=== PATIENT | female | born 1935 | race Caucasian/White ===

== ENCOUNTER 2016-09-05 17:03 | Inpatient (IN) | payer OTHER ==
[~2016-09-05 17:03] MED LIST: ATORVASTATIN CALCIUM 10 MG TAB PO SCH
--- NOTE | 2016-09-05 17:38 | EDPHY ---
H & P Stated Complaint: sent from [facility] with pna HPI/ROS: CHIEF COMPLAINT: Cough, fever, PNA on x-ray HISTORY OF PRESENT ILLNESS: The patient is an 81 y/o female, with a history of MAC bronchiectasis, arriving at the referral of her PCP with pneumonia diagnosed on x-ray this afternoon. She began feeling poor last night with nasal congestion, sore throat, fatigue, fever, and feeling out of breath. She has a chronic cough from MAC, but says her cough is worse than normal. She saw her PCP today for these symptoms and had a chest x-ray and labs done. She was diagnosed with pneumonia. She did receive a flu vaccination this season. She denies vomiting, diarrhea, abdominal pain, or dysuria. REVIEW OF SYSTEMS: A ten point review of systems was performed and is negative with the exception of the items mentioned in the HPI. Source: Patient Exam Limitations: No limitations - Personal History Current Tetanus/Diphtheria Vaccine: Yes - Medical/Surgical History PMH: PMH includes: 1. MAC (mycobacterium avium complex) and bronchiectasis for the past 3-[address] 2. Hypercholesteremia 3. Depression, recently 4. Ectopic 5. Right knee surgery 6. Appendectomy 7. GERD PCP: Dr. Phillip Reaction to azithromycin is diarrhea. 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 Two children. Former smoker quit 1970. Rare alcohol use. No illicit drug use. of leukemia recently. - Physical Exam Exam: General Appearance: Alert. Vital signs reviewed. Tachycardic 120 Eyes: Pupils equal and round, no conjunctival injection, no discharge. Anicteric. ENT, Mouth: Mucous membranes are moist, no oropharyngeal erythema or edema. Neck: mild anterior lymphadenopathy, supple. Respiratory: Lungs have crackles on left side. No wheezes. Cardiovascular: Tachycardic; no murmur, rub, or gallop. Gastrointestinal: Abdomen is soft and nontender, no masses or organomegaly, bowel sounds normal. Skin: Warm and dry, no rashes on exposed skin, normal color. Cheeks flushed. Back: Nontender to palpation over the thoracolumbar spine. No CVAT. Extremities: No lower extremity edema, no calf tenderness or swelling. Neurological: Alert and oriented. Moving all four extremities easily and equally. Psychiatric: Normal affect. Constitutional: Initial Vital Signs Temperature (C) 37.1 C 09/05/16 17:20 Heart Rate 120 H 09/05/16 17:20 Respiratory Rate 22 H 09/05/16 17:20 Blood Pressure 107/74 09/05/16 17:20 O2 Sat (%) 93 09/05/16 17:20 O2 Delivery Mode Room Air Allergies/Adverse Reactions: azithromycin Allergy (Verified 09/05/16 17:17) metronidazole [From Flagyl] Allergy (Verified 09/05/16 17:17) Home Medications: Medication Instructions Recorded Albuterol Hfa Anes Only [Proair 2 puffs IH TID 09/05/16 Hfa Icu (*)] Amitriptyline HCl [Elavil 10 mg 10 mg PO DAILY 09/05/16 (*)] Calcium Carbonate [Tums 500MG (*)] 500 mg PO DAILY PRN 09/05/16 Escitalopram Oxalate [Lexapro] 2.5 mg PO DAILY 09/05/16 Fluticasone Nasal [Flonase Nasal 1 sprays NASAL BID 09/05/16 [place] (RX)] Ivermectin [Soolantra] 1 lulu TP DAILY 09/05/16 Propranolol HCl [Inderal 10mg (*)] 5 - 10 mg PO DAILY PRN 09/05/16 Ranitidine HCl [Zantac] 300 mg PO HS 09/05/16 Simvastatin 20 mg PO Q48H 09/05/16 Simvastatin 30 mg PO Q48H 09/05/16 Temazepam 0.5 - 1 tab PO HS 09/05/16 Tretinoin [Retin-A] 1 lulu TP DAILY 09/05/16 Medical Decision Making ED Course/Re-evaluation: IV established. Labs drawn including cultures, labs performed at [facility] will be reviewed. 1000mg PO Tylenol and 1L IV NS administered. Her WBC is normal. Based upon her elevated respiratory rate at 10:00 p.m. elevated heart rate of 120 she does meet sepsis/SIRS criteria. She has a lingular pneumonia seen on chest x-ray. She is being given IV fluids. Levaquin is being ordered for treatment of a community-acquired pneumonia. She reports an allergy to azithromycin. She does not meet criteria for severe sepsis. Her lactate is 1, her bilirubin is normal, platelets are normal. Influenza testing is negative. She is being admitted to the hospital for IV antibiotics. Dr. Hernanedz accepts admission. She remained stable while in the ED. Differential Diagnosis: Shortness of breath including but not limited to pulmonary infectious process, COPD, asthma, pulmonary embolus and congestive heart failure. - Data Points Laboratory Results: Laboratory Results 09/05/16 17:50 09/05/16 17:50 Medications Given: Discontinued Medications Acetaminophen (Tylenol) 1,000 mg PO EDNOW ONE Stop: 09/05/16 18:44 Last Admin: 09/05/16 18:47 Dose: 1,000 mg Atorvastatin Calcium (Lipitor) 10 mg PO Q48H SHERRILL Stop: 03/04/17 08:59 Last Admin: 09/05/16 22:15 Dose: Not Given Escitalopram Oxalate (Lexapro) 10 mg PO DAILY SHERRILL Stop: 03/05/17 08:59 Last Admin: 09/06/16 09:55 Dose: Not Given Levofloxacin/Dextrose (Levaquin 750 Mg (Premix)) 150 mls @ 100 mls/hr IV EDNOW ONE PRN Reason: Protocol Stop: 09/05/16 20:09 Last Admin: 09/05/16 18:53 Dose: 150 mls Sodium Chloride (Ns) 1,000 mls @ 100 mls/hr IV CONT SHERRILL Stop: 09/06/16 06:14 Last Admin: 09/05/16 22:13 Dose: 1,000 mls Sodium Chloride (Ns) 1,000 mls @ 0 mls/hr IV ONCE ONE PRN Reason: Wide Open Stop: 09/05/16 20:18 Last Admin: 09/05/16 22:06 Dose: 1,000 mls Departure - Departure Disposition: [facility] Inpatient Acute Clinical Impression: Lingular pneumonia Condition: Good Report Scribed for: Estrella Weeks Report Scribed by: Jennifer Warner Date of Report: 09/05/16 Time of Report: 17:40 Physician Review and Approval Statement: 09/05/16 17:37 Portions of this note were transcribed by the medical receptionist assistant. I, Dr. Estrella Cabeen, personally performed the history, physical exam, and medical decision- making; and confirmed the accuracy of the information in the transcribed note.
[2016-09-05 18:03] LABS: % IMMATURE GRANULYOCYTES 0.1 % (0.0-1.1); ABSOLUTE IMMATURE GRANULOCYTES 0.01 10^3/uL (0.00-0.10); ADD DIFF? NO; ADD MORPH? NO; ADD SCAN? NO; ATYPICAL LYMPHOCYTE FLAG 20 (0-99); FRAGMENT RBC FLAG 0 (0-99); HEMATOCRIT 40.2 % (38.0-47.0); HEMOGLOBIN 13.8 g/dL (12.6-16.3); LEFT SHIFT FLG 0 (0-99); LIPEMIA HEMOLYSIS FLAG 90 (0-99); MEAN CELL HEMOGLOBIN 31.9 pg (27.9-34.1); MEAN CELL HEMOGLOBIN CONCENTR. 34.3 g/dL (32.4-36.7); MEAN CELL VOLUME 92.8 fL (81.5-99.8); MEAN PLATELET VOLUME 9.3 fL (8.7-11.7); PLATELET CLUMPS FLAG 10 (0-99); PLATELET COUNT 242 10^3/uL (150-400); RED BLOOD CELL COUNT 4.33 10^6/uL (4.18-5.33); RED CELL DISTRIBUTION WIDTH 12.9 % (11.5-15.2)
[2016-09-05 18:23] LABS: APTT 25.1 SEC (23.0-38.0); INR 1.06 (0.83-1.16); PROTIME(PATIENT) 13.7 SEC (12.0-15.0)
[2016-09-05 18:27] LABS: ANION GAP 13 mEq/L (8-16); BILIRUBIN,TOTAL 0.6 mg/dL (0.1-1.4); CALCIUM 9.4 mg/dL (8.5-10.4); CARBON DIOXIDE 26 mEq/l (22-31); CHLORIDE 95 mEq/L (97-110); CREATININE 0.9 mg/dL (0.6-1.0); GLOMERULAR FILTRATION RATE > 60; GLUCOSE 99 mg/dL (70-100); POTASSIUM 4.1 mEq/L (3.5-5.2); SODIUM 134 mEq/L (134-144)
[2016-09-05] MEDS ORDERED: ACETAMINOPHEN 500 MG TAB PO ONE (18:43)
[2016-09-05] MEDS ORDERED: ONDANSETRON 4 MG/2 ML VIAL IVP PRN (20:05)
[2016-09-05] MEDS ORDERED: ONDANSETRON DISINTEGRATING 4 MG TAB PO PRN (20:05)
[2016-09-05] MEDS ORDERED: ALBUTEROL 3 ML DEYVIAL IH PRN (20:11)
[2016-09-05] MEDS ORDERED: NS 1,000 ML IV SCH (20:15)
[2016-09-05] MEDS ORDERED: NS 1,000 ML IV ONE (20:17)
--- NOTE | 2016-09-05 20:55 | GHP ---
[f rep st] HISTORY AND PHYSICAL DATE OF ADMISSION: 09/05/2016 CHIEF COMPLAINT: Fever, cough and congestion. HISTORY OF PRESENT ILLNESS: The patient is an 81-year-old female with a history of MAC bronchiectasis and chronic cough who presents to the emergency department from her PCP's office due to concern for a pneumonia finding on chest x-ray. She states her symptoms started approximately 2 days ago with nasal congestion, sore throat, generalized fatigue, and subjective fever. She denies chest pain, but she does endorse some shortness of breath. Her cough is worse than normal. She was seen in the outpatient clinic, and a chest x-ray revealed a pneumonia. Due to her age and overall weakness, she was sent to the emergency department and is admitted to the hospital for further management. PAST MEDICAL HISTORY: 1. Mycobacterium avium complex. 2. Bronchiectasis based on prior CT scan. 3. Hyperlipidemia. 4. Depression. 5. GERD. PAST SURGICAL HISTORY: 1. Right knee surgery. 2. Appendectomy. SOCIAL HISTORY: The patient is a former smoker. She denies alcohol or drug use. 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 She states her of leukemia approximately 1 year ago. FAMILY HISTORY: Reviewed and is not pertinent. MEDICATIONS: Please see [facility] for complete updated outpatient medication list. ALLERGIES: Azithromycin and metronidazole. REVIEW OF SYSTEMS: A 10-point review of systems was performed and is negative except as per HPI. OBJECTIVE: VITAL SIGNS: Upon her arrival to the emergency department, temperature is 37.1, blood pressure 107/74, heart rate 120, respiratory rate 22 , she is 93% on room air. GENERAL: The patient is awake, alert, oriented, no acute distress. HEENT: Head is atraumatic, normocephalic. Pupils equal, round , reactive to light. Extraocular muscles are intact. Oropharynx is clear. There is marked nasal congestion. Oropharynx reveals erythema. NECK: Supple. There is no JVD. SKIN: She does have eric cheeks and a mild petechial appearing rash on the right side of her neck. HEART: Regular rate and rhythm without murmur. LUNGS: Reveal crackles in the left lower lung gar, otherwise clear to auscultation. ABDOMEN: Soft, nondistended, nontender. Bowel sounds are positive. EXTREMITIES: Without cyanosis, clubbing, or edema. Warm and well perfused. NEUROLOGIC: Grossly nonfocal. LABORATORY STUDIES: Chest x-ray performed today reveals a new lingular lobe pneumonia superimposed on chronic airway disease and bronchiectasis. ASSESSMENT AND PLAN: The patient is an 81-year-old female with a history of Mycobacterium avium complex bronchiectasis who presents to the hospital with upper respiratory symptoms and pneumonia by imaging. 1. Acute hypoxemic respiratory failure secondary to community-acquired pneumonia: Upon arrival, she was 93% on room air though she is now requiring 2 L of oxygen. She is afebrile with a normal white count. She had a normal lactate. Her blood pressure has trended down a bit to the 90s over 60s. I will give her a normal saline bolus at this time and run maintenance fluids overnight. BCx's are pending. Will also send sputum culture. She received a dose of Levaquin in the emergency department. We will continue this, in addition to supportive care including nebulizers, mucolytics and antipyretics as needed. I do not hear any significant wheezing on exam, so I will defer steroids at this time. 2. History of Mycobacterium avium complex / bronchiectasis: Consider pulmonology consult in am. 3. Depression: I will continue her SSRI and her tricyclic antidepressant. 4. Hyperlipidemia: Continue statin. 5. DVT prophylaxis. The patient is high risk, and thus, Lovenox will be ordered in the event she requires ongoing hospitalization. CODE STATUS: Patient is FULL CODE. DISPOSITION: Patient admitted to observation status. If she clinically looks well, she could be considered for discharge tomorrow. Though if her condition worsens, she may need to be changed to inpatient status. /[id number]/MODL MTDD
[2016-09-05] MEDS ORDERED: ATORVASTATIN CALCIUM 10 MG TAB PO SCH ×2 (21:00)
[2016-09-05] MEDS: IPRATROPIUM/ALBUTEROL 3 ML DEYVIAL IH SCH (21:50)
[2016-09-05] MEDS: guaiFENesin 600 MG TAB.ER PO SCH (22:06)
[2016-09-05] MEDS: FAMOTIDINE 20 MG TAB PO SCH (22:06)
[2016-09-05] MEDS: FLUTICASONE NASAL 120 SPRAYS/16 GM MDI EACHNARE SCH (22:06)
[2016-09-05] MEDS: TEMAZEPAM 15 MG CAP PO PRN (22:07)
[2016-09-05 22:44] VITALS: RESP 16
[2016-09-05] MEDS: CALCIUM CARBONATE 500 MG CHEWABLE TAB PO PRN (23:33)
[2016-09-06] MEDS ORDERED: BENZONATATE 100 MG CAP PO PRN (01:19)
[2016-09-06 05:41] LABS: % IMMATURE GRANULYOCYTES 0.2 % (0.0-1.1); ABSOLUTE IMMATURE GRANULOCYTES 0.01 10^3/uL (0.00-0.10); ADD DIFF? NO; ADD MORPH? NO; ADD SCAN? NO; ATYPICAL LYMPHOCYTE FLAG 80 (0-99); FRAGMENT RBC FLAG 0 (0-99); HEMATOCRIT 33.7 % (38.0-47.0); HEMOGLOBIN 11.4 g/dL (12.6-16.3); LEFT SHIFT FLG 0 (0-99); LIPEMIA HEMOLYSIS FLAG 90 (0-99); MEAN CELL HEMOGLOBIN 32.1 pg (27.9-34.1); MEAN CELL HEMOGLOBIN CONCENTR. 33.8 g/dL (32.4-36.7); MEAN CELL VOLUME 94.9 fL (81.5-99.8); MEAN PLATELET VOLUME 9.2 fL (8.7-11.7); PLATELET CLUMPS FLAG 20 (0-99); PLATELET COUNT 188 10^3/uL (150-400); RED BLOOD CELL COUNT 3.55 10^6/uL (4.18-5.33); RED CELL DISTRIBUTION WIDTH 13.1 % (11.5-15.2)
[2016-09-06 05:49] LABS: ANION GAP 8 mEq/L (8-16); CALCIUM 8.4 mg/dL (8.5-10.4); CARBON DIOXIDE 27 mEq/l (22-31); CHLORIDE 104 mEq/L (97-110); CREATININE 0.8 mg/dL (0.6-1.0); GLOMERULAR FILTRATION RATE > 60; GLUCOSE 100 mg/dL (70-100); POTASSIUM 3.9 mEq/L (3.5-5.2); SODIUM 139 mEq/L (134-144)
[2016-09-06] MEDS: IPRATROPIUM/ALBUTEROL 3 ML DEYVIAL IH SCH ×4 (05:51→21:41)
[2016-09-06] MEDS: ACETAMINOPHEN 325 MG TAB PO PRN ×2 (06:26→14:21)
[2016-09-06] MEDS ORDERED: ESCITALOPRAM OXALATE 10 MG TAB PO SCH (09:00)
[2016-09-06] MEDS ORDERED: ATORVASTATIN CALCIUM 10 MG TAB PO SCH (09:00)
[2016-09-06] MEDS: ENOXAPARIN 40 MG/0.4 ML SYR SC SCH (09:54)
[2016-09-06] MEDS: guaiFENesin 600 MG TAB.ER PO SCH ×2 (09:55→21:56)
[2016-09-06] MEDS: AMITRIPTYLINE HCL 10 MG TAB PO SCH (09:55)
[2016-09-06] MEDS: FLUTICASONE NASAL 120 SPRAYS/16 GM MDI EACHNARE SCH ×2 (09:56→21:57)
[2016-09-06] MEDS: Ivermectin [Soolantra] 1 APP TP SCH (09:57)
[2016-09-06] MEDS: ESCITALOPRAM OXALATE 10 MG TAB PO SCH (10:41)
[2016-09-06] MEDS: CALCIUM CARBONATE 500 MG CHEWABLE TAB PO PRN ×2 (14:21→18:17)
--- NOTE | 2016-09-06 15:45 | HOSPPROG ---
Hospitalist Progress Note Assessment/Plan: 81-year-old female with a known history of mycobacterium avium complex, she was seen in her PCPs office and diagnosed with pneumonia and admitted through the emergency department. Patient is new to me today. -acute pneumonia with known mycobacterium avium complex. She is currently under treatment with bronchodilators and antibiotics and. The cough has been persistent and she is quite tired and now today is developed acute hoarseness. Though her oxygenation is in is improved her clinical status is worse. She is tired and weak and demonstrate some evidence of orthostatic blood pressure and pulse when standing and is slightly dizzy. This is probably just a continuation of the acute illness though she is unsafe to return home where she lives alone. Due to the persistent cough the need for antibiotics and bronchodilators, and her orthostatic blood pressure and pulse findings she should be changed from observation status to inpatient status. -acute hoarseness secondary to persistent coughing. She is on mucolytic ex at this time. I will order heat to the throat and back area and keep the area covered for comfort. -known pulmonary bronchiectasis with mycobacterium avium complex chronic infection. -chronic problems: Hyperlipidemia, depression, GERD. These will be treated appropriately Plan: Patient should be changed from observation to inpatient status due to the persistence of her respiratory distress and orthostatic blood pressure and pulse findings. Subjective: Patient reports new hoarseness and a persistence of the cough. She had a sleepless night secondary to her respiratory difficulties. Objective: Vital Signs Temp Pulse Resp BP Pulse Ox 36.5 C 76 16 86/51 L 97 09/06/16 12:16 09/06/16 12:16 09/06/16 12:16 09/06/16 12:19 09/06/16 12:16 Microbiology 09/06/16 04:45 - Final Sputum, Expectorated Laboratory Results 09/06/16 05:14 09/06/16 05:14 09/05/16 09/06/16 09/07/16 05:59 05:59 05:59 Intake Total 1400 1300 Output Total 1200 Balance 200 1300 PT 13.7 SEC (12.0-15.0) 09/05/16 17:50 INR 1.06 (0.83-1.16) 09/05/16 17:50 - Time Spent With Patient Time Spent with Patient: greater than 35 minutes Time Spent with Patient: Greater than 35 minutes spent on this patients care, greater than 50% of time spent counseling, educating, and coordinating care regarding the above mentioned plan. - Physical Exam Constitutional: other (Tired and ill-appearing. She coughed persistently through my exam and is clearly very hoarse.) Eyes: PERRL, anicteric sclera Ears, Nose, Mouth, Throat: moist mucous membranes, hearing normal Cardiovascular: regular rate and rhythym, no murmur, rub, or gallop Respiratory: reduced air movement, inspiratory crackles, bronchial breath sounds , rhonchi Gastrointestinal: normoactive bowel sounds, soft, non-tender abdomen Genitourinary: no bladder fullness Skin: warm Musculoskeletal: generalized weakness Neurologic: AAOx3, CN II-XII Intact Psychiatric: interacting appropriately ICD10 Worksheet Patient Problems: Problems Problem Status Diagnosed Lingular pneumonia Acute
[2016-09-06] MEDS: FAMOTIDINE 20 MG TAB PO SCH (21:56)
[2016-09-06] MEDS: TEMAZEPAM 15 MG CAP PO PRN (22:08)
[2016-09-07] MEDS: ACETAMINOPHEN 325 MG TAB PO PRN (00:20)
[2016-09-07 05:58] VITALS: TEMP 98.1
[2016-09-07] MEDS: IPRATROPIUM/ALBUTEROL 3 ML DEYVIAL IH SCH ×3 (06:06→16:30)
[2016-09-07] MEDS: guaiFENesin 600 MG TAB.ER PO SCH (08:52)
[2016-09-07] MEDS: ESCITALOPRAM OXALATE 10 MG TAB PO SCH (08:53)
[2016-09-07] MEDS: AMITRIPTYLINE HCL 10 MG TAB PO SCH (08:53)
[2016-09-07] MEDS: FLUTICASONE NASAL 120 SPRAYS/16 GM MDI EACHNARE SCH (08:54)
[2016-09-07] MEDS: ENOXAPARIN 40 MG/0.4 ML SYR SC SCH (08:54)
[2016-09-07] MEDS: Ivermectin [Soolantra] 1 APP TP SCH (08:54)
[2016-09-07 12:20] VITALS: BP 106/64; PULSE 90; O2SAT 92
--- NOTE | 2016-09-07 14:46 | GDS ---
[f rep st] DISCHARGE SUMMARY NEW AND ACUTE DIAGNOSES ON THIS ADMISSION: 1. Acute pneumonia, possible atypical organism. 2. Bronchiectasis by history with acute exacerbation of acute bronchitis. 3. History of mycobacterium avium complex chronic pulmonary infection. CHRONIC DIAGNOSES: 1. Hyperlipidemia. 2. Depression. 3. Gastrointestinal reflux disease. CONSULTATIONS: None. PROCEDURES: None. HOSPITAL COURSE: This is an 81-year-old female with a history of mycobacterium avium complex bronchi ectasis and a history of a chronic cough, who presented to her PCP's office with a worsening cough an d was found to have a pneumonia by chest x-ray. She was noted to be hypoxic upon admission, was plac ed on Levaquin IV, bronchodilators, antitussives for her pulmonary care. On the first day of her hos pitalization, she developed severe hoarseness and was unable to talk. Within the next 24 hours, her shortness of breath and cough considerably improved and her voice returned. She at that point had no rmal oxygenation on room air and with exertion, and desired to return home. I have discussed with the patient's pulmonary findings with the patient. She is followed by Dr. Jean Adame for her bronchiectasis and bronchospasm. I have encouraged her to follow up with Dr. Adame within the next 5-7 days. DISCHARGE MEDICATIONS: Levaquin 750 mg p.o. daily x8 days, Mucinex 1200 mg b.i.d., Tessalon Perles 200 mg t.i.d., Tretinoin cream, temazepam 7.5 mg capsule to be used for sleep, Inderal 5-10 mg p.o. d aily, Tums in the form of 500 mg daily, albuterol ProAir inhaler 2 puffs q.4 hours while awake, Tylen ol for pain, Ivermectin cream, Flonase nasal spray 1 inhalation each nostril b.i.d., ranitidine 300 m g p.o. q.h.s., Lexapro 2.5 mg daily, simvastatin 20 mg every 48 hours, Elavil 10 mg daily. PLAN: The patient will be returning home to her own home care. She has friends who will assist her. She desires to return home on her own without assistance. Followup will be with Dr. Giuseppe martin 5-7 days. Time this discharge required 40 minutes, greater than 50% to mortgage counselor and coordinate her care. /[id number]/MODL
== END 2016-09-07 16:52 | disposition home or self-care (01) | DRG 193 ==
LOC: INTOOBSV 18:57 → F1N 20:22 → OBSVTOIN 09-06 15:41
PROVIDERS: ADMIT Hospitalist; ATTEND Internal Medicine Pulmonary Disease
DX: J18.9 Pneumonia, unspecified organism (principal); J47.0 Bronchiectasis with acute lower respiratory infection; J96.01 Acute respiratory failure with hypoxia; E78.5 Hyperlipidemia, unspecified; K21.9 Gastro-esophageal reflux disease without esophagitis; F32.9 Major depressive disorder, single episode, unspecified; Z87.891 Personal history of nicotine dependence
CPT/HCPCS: 96365; 97161-GP; 97165-GO; G0378; G8978-GP-CI; G8979-GP-CI; G8980-GP-CI; G8987-GO-CI; G8988-GO-CI; G8989-GO-CI; J1650

== ENCOUNTER → 2016-09-05 | Outpatient (CLI) | payer OTHER ==
--- NOTE | 2016-09-05 16:34 | DX ---
PA and Lateral Chest September 05, 2016 Indication: Shortness of breath, cough, and fever. History of MAC. Comparison: CT chest dated October 08, 2015 and two-view chest dated October 05, 2013. Findings: New airspace consolidation has developed in the lingula tracking along the major fissure o n the lateral view. Diffuse peribronchial thickening and areas of submucosal tree-in-bud pattern thr oughout the right lung have not significantly changed. No layering effusion. Heart size normal. No compression fracture. Impression: New lingular pneumonia superimposed on chronic airways disease and bronchiectasis. Comment: Results were called to Briana Stern NMaximo[facility]imo, at 4:20 p.m. on September 05, 2016.
== END ==
LOC: BMCIMAGING 15:46
PROVIDERS: ATTEND Nurse Practitioner Adult Health
DX: J18.9 Pneumonia, unspecified organism (principal); J44.9 Chronic obstructive pulmonary disease, unspecified

== ENCOUNTER → 2017-05-05 | Outpatient (CLI) | payer OTHER | LOC: BMCIMAGING 13:57 | PROVIDERS: ATTEND Internal Medicine | DX: Z12.31 Encounter for screening mammogram for malignant neoplasm of breast (principal) | CPT/HCPCS: G0202 ==

== ENCOUNTER → 2017-08-13 | Outpatient (CLI) | payer OTHER | LOC: BMCIMAGING 13:14 | PROVIDERS: ATTEND Internal Medicine | DX: J98.4 Other disorders of lung (principal); J47.9 Bronchiectasis, uncomplicated ==

== ENCOUNTER → 2017-12-29 | Outpatient (CLI) | payer OTHER | LOC: BMCIMAGING 10:42 | PROVIDERS: ATTEND Internal Medicine | DX: Z13.820 Encounter for screening for osteoporosis (principal); M81.0 Age-related osteoporosis without current pathological fracture ==